=== PATIENT | male | born 1930 | race Caucasian/White ===

== ENCOUNTER → 2016-11-24 | Outpatient (CLI) | payer MEDICARE, OTHER ==
--- NOTE | 2016-11-25 09:12 | CT ---
EXAM DESCRIPTION: Lumbar Spine CLINICAL HISTORY: RADICULOPATHY COMPARISON: None TECHNIQUE: Non contrast transaxial CT images of the lumbar spine are obtained with coronal and sagittal reconstructed images. This exam was performed according to our departmental dose-optimization program, which includes automated exposure control, adjustment of the mA and/or kV according to patient size and/or use of iterative reconstruction technique . FINDINGS: GENERAL Lumbar vertebral bodies show normal height. Mild curvature of the upper lumbar spine with convexity towards the left is seen. There is severe disc space narrowing and vacuum disc from L1 through L3 and L4-S1 with moderate disc space narrowing and vacuum disc at L3-4. Moderate sclerotic changes involving the endplates around the disc space towards the right at L2-3 are seen with mild sclerotic changes left greater than right at L4-S1. There is moderate facet hypertrophic and degenerative change throughout the lumbar spine. Mild atherosclerotic disease is seen. Fluid attenuation parapelvic cyst of the left kidney are noted. Moderate degenerative changes of the sacroiliac joints are seen. The osseous structures are diffusely osteopenic. L1-2 No significant spinal canal stenosis. There is mild right greater than left foraminal encroachment. L2-3 Trace retrolisthesis of L2 on L3 is seen. Ligamentum flavum thickening is also seen. There is posterior circumferential ridging disc osteophyte complex contributing to at least moderate spinal canal stenosis. There is moderate right and mild left foraminal encroachment. L3-4 Moderate ligamentum flavum thickening is seen with broad-based disc bulge contributing to moderate to severe spinal canal stenosis. There is at least mild bilateral foraminal encroachment. L4-5 Ligamentum flavum thickening is seen contributing to moderate spinal canal stenosis and left greater than right lateral recess encroachment. There is severe left greater than right foraminal encroachment. L5-S1 Mild to moderate bilateral foraminal encroachment is seen. 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 There is multifactorial at least moderate spinal canal stenosis at L2-3 and L3-4 with multilevel foraminal encroachment most significant from L2 through L5. Electronically signed by: Orion Vera MD 11/25/2016 9:10 AM CDT
== END ==
LOC: CT 09:40
PROVIDERS: ATTEND Orthopaedic Surgery
DX: M54.16 Radiculopathy, lumbar region (principal); M12.88 Other specific arthropathies, not elsewhere classified, other specified site; M48.06 Spinal stenosis, lumbar region

== ENCOUNTER 2019-07-03 20:00 | Emergency (ER) | payer MEDICARE, OTHER ==
[2019-07-03 20:18] VITALS: TEMP 97.3
[2019-07-03] MEDS ORDERED: SODIUM CHLORIDE 0.9% (FLUSH) 10 ML SYG IV PRN (20:20)
--- NOTE | 2019-07-03 20:41 | ED.PDOC ---
History of Present Illness - General Chief Complaint: Cardiovascular Problem Stated Complaint: chest pain Time Seen by Provider: 07/03/19 20:17 Source: patient, family Exam Limitations: no limitations - History of Present Illness Initial Comments: CP X 2 MOS. SOB X 4 MOS. GETTING WORSE. CHEST PAIN GETTING TIGHTER AND TIGHTER. COMES AND GOES. CP WORSE WITH DEEP BREATH. HAS NOT SEEN A DR YET. DENIES TRAUMA. HAS PCP IN [place] AND [facility] IN [place]. STATES HE HAS NOT SEEN [facility] IN 10 YRS. H/O PACEMAKER PLACED 20 YR AGO AND REPLACED 10 YR AGO. Timing/Duration: getting worse Severity/Quality: severe, sharp Chest Pain Radiation: no radiation Activities at Onset: none Prior Chest Pain/Cardiac Workup: other - POOR HISTORIAN WHEN ASKED ABOUT CARDIAC HX. JUST MENTIONS HAD PACER 20 AND 10 YRS AGO. Improving Factors: nothing Worsening Factors: nothing Associated Symptoms: denies symptoms Allergies/Adverse Reactions: Allergies Penicillins Allergy (Verified 07/03/19 20:09) Home Medications: Ambulatory Orders Lefamulin Acetate [Xenleta] 600 mg PO BID #10 tab 07/03/19 Review of Systems - Review of Systems Constitutional: Denies: chills, fever, weakness EENTM: States: no symptoms reported Respiratory: States: short of breath. Denies: cough, wheezing Cardiology: States: chest pain. Denies: palpitations Gastrointestinal/Abdominal: Denies: abdominal pain, constipation, diarrhea, nausea, vomiting Genitourinary: Denies: dysuria, frequency, pain Musculoskeletal: Denies: back pain, neck pain Skin: States: no symptoms reported Neurological: States: no symptoms reported Endocrine: States: no symptoms reported Hematologic/Lymphatic: States: no symptoms reported All other Systems: Reviewed and Negative Past Medical History (General) - Patient Medical History Hx Stroke: No Hx Dementia: No Hx Asthma: No Hx of COPD: No Hx Cardiac Disorders: Yes Hx Pacemaker: Yes Hx Hypertension: No Hx Thyroid Disease: No Hx Diabetes: No Hx Gastroesophageal Reflux: Yes Hx Renal Disease: No Hx of HIV: No Surgical History: pacemaker - Vaccination History Hx Tetanus, Diphtheria Vaccination: No Hx Influenza Vaccination: No Hx Pneumococcal Vaccination: No - Social History Hx Tobacco Use: No Hx Alcohol Use: Yes Family Medical History - Family History Father Age (years): 87 Living Status: Hx Cardiac Disease: Yes Physical Exam - Physical Exam General Appearance: Alert, Well Groomed Eyes, Ears, Nose, Throat Exam: PERRL/EOMI, normal ENT inspection Neck: non-tender, full range of motion, normal inspection Respiratory: lungs clear, normal breath sounds, no respiratory distress, no accessory muscle use, other - L ANTERIOR RIBS, INFERIOR TO L PECTORALIS ARE EXQUISITELY TTP. PT STATES THIS REPLICATES HIS CP. Cardiovascular/Chest: normal peripheral pulses, regular rate, rhythm, no gallop, no murmur Peripheral Pulses: radial,right: 2+, radial,left: 2+ Gastrointestinal/Abdominal: normal bowel sounds, non tender, soft, no organomegaly, no pulsatile mass Extremity: normal range of motion, normal inspection Neurologic: no motor/sensory deficits, alert, normal mood/affect Skin Exam: normal color, warm/dry Lymphatic: no adenopathy Progress - Progress Progress: 07/03/19 20:42 MEDICAL NON-COMPLIANCE - PT HAS RX FROM PCP AND [facility] (20 H/O PACEMAKER) BUT HE DECLINES TO TAKE ANY MEDS. PT DECLINED PAIN MED OFFER. LATER PT SAID HE WOULD TAKE NTG BUT NO PAIN MEDS, THUS NTG X 1 GIVEN. 07/03/19 22:08 CXR = BL INFRAHILAR OPACITIES, C/W BL PNE. I INFORMED PT AND HE MENTIONS COUGH X 2 MOS. PT REFUSES COVID SWAB. PCN ALLERGIC (RXN = PT STATES IT CAUSED HIS HEART TO STOP, THUS I WILL AVOID CEPHALOSPORINS WELL). RIB XRAY NEG FOR RIB PATHOLOGICAL FRX. LABS WITH NO CONCERNS: CBC, CMP, CARDIAC ENZ, COAGS, D-DIMER. EKG - PACED. BNP NEG. 07/03/19 22:14 PT REMOVED HIS IV IN THE ER WITHOUT OUR KNOWLEDGE. I WAS GOING TO GIVE INITIAL DOSE ABX VIA IV BUT THUS WILL RX PO. PT IS SEVERELY ALLERGIC TO PCN (HEART STOPPED) THUS CANNOT DO CEPHALOSPORINS. FLUOROQUINOLONES NOW HAVE SERIOUS BLACKBOX WARNING, THUS I WILL RX LEFAMULIN MONOTHERAPY PER UP-TO-DATE RECOMMENDATION. SAFE FOR DC TO HOME FOR OUTPT TX OF COMMUNITY ACQUIRED PNEUMONIA. GAVE RETURN PRECAUTIONS. 07/03/19 22:29 Departure - Departure Clinical Impression: Atypical chest pain, Cough Dyspnea Qualifiers: Dyspnea type: shortness of breath Qualified Code(s): R06.02 - Shortness of breath; R06.00 - Dyspnea, unspecified; R06.01 - Orthopnea Pneumonia Qualifiers: Pneumonia type: due to unspecified organism Laterality: bilateral Lung location: unspecified part of lung Qualified Code(s): J18.9 - Pneumonia, unspecified organism Disposition: Discharge to Home or Self Care Condition: Fair Departure Forms: ED Discharge - Pt. Copy, Patient Portal Self Enrollment Instructions: Community-Acquired Pneumonia, Adult (DC) Diet: resume usual diet Activity: increase activity as tolerated Referrals: NIKO JONES [Primary Care Provider] - 1-2 Weeks Prescriptions: Lefamulin Acetate [Xenleta] 600 mg PO BID #10 tab Home Medications: Ambulatory Orders Lefamulin Acetate [Xenleta] 600 mg PO BID #10 tab 07/03/19
--- NOTE | 2019-07-03 21:00 | RAD ---
EXAM DESCRIPTION: Chest,1 View CLINICAL HISTORY: 88 years Male CHEST PAIN X 2 MONTHS. COMPARISON: March 02, 2007. TECHNIQUE: AP view of the chest was obtained. FINDINGS: Cardiac silhouette is mildly enlarged. Central vessels are not increased. Pacemaker leads identified. Electrodes lateral left hemithorax. Infrahilar airspace opacities bilaterally. No consolidation. No effusions bilaterally. No pneumothorax. Metallic plate and screw device lower cervical spine. IMPRESSION: Enlarged heart with no evidence for congestive heart failure. Atelectatic change versus infiltrate infrahilar regions bilaterally. Electronically signed by: Brianna Vance MD 07/03/2019 8:59 PM CDT
[2019-07-03] MEDS ORDERED: NITROGLYCERIN 0.4 MG 25 EA TAB SL ONE ×2 (21:17)
--- NOTE | 2019-07-03 22:21 | RAD ---
EXAM DESCRIPTION: XR RIBS, 2 VIEWS CLINICAL HISTORY: L ANTERIOR RIBS TTP. CP X 2 MOS. TECHNIQUE: 2 rib detail views of the left hemithorax are submitted. COMPARISON: None available for comparison FINDINGS: Bones: No acute rib fracture. Lower cervical fusion hardware. Multilevel spondylosis. Heart: The cardiothoracic silhouette is within normal limits. Left chest wall dual-lead pacer. Lungs: Streaky left basilar subsegmental atelectasis/pleural parenchymal scar. No focal consolidation. Mediastinum: Thoracic aortic atherosclerosis. Pleura: No appreciable effusion. No pneumothorax. Upper abdomen: Unremarkable IMPRESSION: No acute injury. Electronically signed by: Aleshia Haynes MD 07/03/2019 10:19 PM CDT
[2019-07-03 22:45] VITALS: BP 114/63; O2SAT 90
== END 2019-07-03 22:44 | disposition home or self-care (01) ==
LOC: ER 20:00
DX: R07.89 Other chest pain (principal); R05 Cough; R06.02 Shortness of breath; J18.9 Pneumonia, unspecified organism; Z95.0 Presence of cardiac pacemaker; Z91.14 Patient's other noncompliance with medication regimen

== ENCOUNTER → 2019-12-13 | Outpatient (CLI) | payer MEDICARE, OTHER | LOC: YCFC.O 09:14 | PROVIDERS: ATTEND Family Medicine | DX: R06.09 Other forms of dyspnea (principal); R35.0 Frequency of micturition; Z12.5 Encounter for screening for malignant neoplasm of prostate; Z13.220 Encounter for screening for lipoid disorders; R73.01 Impaired fasting glucose; R53.83 Other fatigue | CPT/HCPCS: 36415; 80053; 80061; 81001; 83036; 83880; 84443; 85025; G0103 ==

== ENCOUNTER → 2020-03-18 | Outpatient (CLI) | payer MEDICARE, OTHER | LOC: YCFC.O 09:57 | PROVIDERS: ATTEND Family Medicine | DX: E11.9 Type 2 diabetes mellitus without complications (principal); E53.8 Deficiency of other specified B group vitamins; E78.5 Hyperlipidemia, unspecified ==